=== PATIENT | male | born 1955 | race Caucasian/White ===

== ENCOUNTER → 2016-09-06 | Outpatient (CLI) | payer OTHER | LOC: COL.RAD 07:30 | DX: R79.89 Other specified abnormal findings of blood chemistry (principal) ==

== ENCOUNTER → 2017-11-10 | Outpatient (CLI) | payer OTHER | LOC: COL.RAD 09:24 | DX: M48.02 Spinal stenosis, cervical region (principal); E04.1 Nontoxic single thyroid nodule ==

== ENCOUNTER → 2017-11-14 | Outpatient (CLI) | payer OTHER | LOC: COL.RAD 12:39 | DX: E04.2 Nontoxic multinodular goiter (principal) ==